=== PATIENT | female | born 1955 | race Caucasian/White ===

== ENCOUNTER 2018-12-23 19:18 | Emergency (ER) | payer MEDICAID ==
[~2018-12-23] VITALS: Ht 167.6 cm; Wt 90.7 kg
[~2018-12-23 19:18] MED LIST: ALPR1TAB2 PO; ATOR20TA50 PO; CYCL10TA3 OR; GABA300C10 PO; HYDR2TAB58 PO; INSLANTI SC; NOVALOG; TRAM50TA2 PO; VALS160T51 PO
[2018-12-23 19:46] VITALS: BP 160/84
[2018-12-23 21:48] LABS: Basophils # (auto) 0 uL; Basophils % (auto) 0.3 % (0.0-2.0); Eosinophils # (auto) 0 uL; Hematocrit 44.3 % (36.0-46.0); Hemoglobin 15.2 g/dL (12.2-16.2); Lymphocytes # (auto) 1.5 uL; Lymphocytes % (auto) 14.2 % (10.0-50.0); Mean Corpuscular Hemoglobin 33.5 pg (28.0-32.0); Mean Corpuscular Hgb Conc. 34.3 g/dL (32.0-36.0); Mean Corpuscular Volume 97.7 fL (80.0-100.0); Monocytes # (auto) 0.7 uL; Monocytes % (auto) 7.1 % (0.0-12.0); Neutrophils # (auto) 8.1 uL; Neutrophils % (auto) 78.4 % (37.0-80.0); Platelet Count (auto) 225 10^3/uL (140-450); Red Blood Cells 4.54 10^6/uL (4.0-5.20); Red Cell Distribution Width 14.5 % (11.8-14.3); White Blood Cell 10.4 10^3/uL (4.4-10.8)
[2018-12-23 21:55] LABS: Albumin 4.1 g/dL (3.4-5.0); Calcium 10.2 mg/dL (8.5-10.1); Potassium 3.3 mmol/L (3.5-5.1)
[2018-12-23 21:58] LABS: Bilirubin, Total 0.8 mg/dL (0.2-1.0); Total Protein 8.6 g/dL (6.4-8.2)
== END 2018-12-23 23:04 | disposition left against medical advice (07) ==
LOC: ER 19:18 → EDBD 19:18 → ER 23:04
DX: R11.2 Nausea with vomiting, unspecified (principal); R19.7 Diarrhea, unspecified; Z53.21 Procedure and treatment not carried out due to patient leaving prior to being seen by health care provider
CPT/HCPCS: 36415; 80053; 85025

== ENCOUNTER 2023-12-04 10:11 | Inpatient (IN) | payer OTHER, MEDICAID ==
[~2023-12-04] VITALS: Ht 152.4 cm; Wt 84.7 kg
[~2023-12-04 10:11] MED LIST changes: +GABA-1250 PO; -GABA300C10 PO; +VALS160T4 PO; -VALS160T51 PO
[2023-12-04] MEDS: ALBUTEROL SULF 2.5 MG/0.5ML(0.5%) NEB SOLN NEB ONE ×2 (11:45→15:30)
[2023-12-04] MEDS: IPRATROPIUM BROM 0.5 MG/2.5ML INH SOL NEB ONE (11:45)
[2023-12-04] MEDS: ASPirin 81 mg TAB PO ONE (12:17)
[2023-12-04 12:27] LABS: Basophils # (auto) 0 10 ^3/uL (0-0.2); Eosinophils # (auto) 0 10 ^3/uL (0-0.8); Eosinophils % (auto) 0.1 % (0.0-7.0); Lymphocytes # (auto) 1.6 10 ^3/uL (0.4-5.4); Neutrophils # (auto) 7.4 10 ^3/uL (1.6-8.6); Neutrophils % (auto) 76.3 % (37.0-80.0); Red Cell Distribution Width 18.9 % (11.8-14.3); White Blood Cell 9.7 10^3/uL (4.4-10.8)
[2023-12-04 12:30] LABS: Basophils % (auto) 0.2 % (0.0-2.0); Hematocrit 36.6 % (36.0-46.0); Hemoglobin 11.2 g/dL (12.2-16.2); Mean Corpuscular Hemoglobin 27.5 pg (28.0-32.0); Mean Corpuscular Hgb Conc. 30.5 g/dL (32.0-36.0); Mean Corpuscular Volume 90.1 fL (80.0-100.0); Monocytes # (auto) 0.6 10 ^3/uL (0-1.3); Monocytes % (auto) 6.4 % (0.0-12.0); Red Blood Cells 4.06 10^6/uL (4.0-5.20)
[2023-12-04 12:41] LABS: Alanine Aminotransferase < 9 U/L (7-40); Albumin 3.7 g/dL (3.2-4.8); Alkaline Phosphatase 122 U/L (46-116); Anion Gap 9 (5-15); Aspartate Aminotransferase 25 U/L (13-40); BUN/Creatinine Ratio 13.4 (10.0-20.0); Bilirubin, Total 0.3 mg/dL (0.2-1.0); Blood Urea Nitrogen 18 mg/dL (9-23); Calcium 9.4 mg/dL (8.5-10.1); Carbon Dioxide 29 mmol/L (20-30); Chloride 97 mmol/L (98-107); Glucose 146 mg/dL (74-106); Potassium 4.7 mmol/L (3.5-5.1); Sodium 135 mmol/L (136-145); Total Protein 7.9 g/dL (5.7-8.2)
[2023-12-04 12:46] LABS: Urine Bacteria MANY /hpf (None Seen); Urine Blood 1+ /uL (Negative); Urine Clarity Turbid (Clear); Urine Color Yellow (Yellow); Urine Protein, UAD 2+ (Negative); Urine Urobilinogen 4 mg/dL (Negative); Urine WBC 298 /hpf (0 - 5); Urine WBC Clumps PRESENT /hpf (None Seen); Urine pH 5.5 (5.0-9.0)
[2023-12-04 12:50] LABS: Base Excess 2.8 mmol/L (-2.0-2.0)
[2023-12-04 12:53] LABS: INR 1.1 (0.9-1.15); Partial Thromboplastin Time 28.8 SEC (24.5-34.5); Prothrombin Time 11.6 sec (9.3-11.8)
[2023-12-04] MEDS ORDERED: VANCOMYCIN PER PHARMACY 0 MG IV SCH (14:45)
[2023-12-04] MEDS ORDERED: DEXTROSE (50%) 50ML SYRG IV PRN (15:00)
[2023-12-04] MEDS ORDERED: ALBUTEROL SULF 2.5 MG/0.5ML(0.5%) NEB SOLN NEB PRN (15:00)
[2023-12-04] MEDS ORDERED: traMADol HCL 50 MG TAB PO PRN (15:00)
[2023-12-04 15:01] VITALS: BP 100/48; PULSE 90; RESP 22; O2SAT 94
[2023-12-04] MEDS ORDERED: cefTRIAXone 1GM/50ML D5W 50 ML IV SCH (15:16)
[2023-12-04 15:24] LABS: LDL Cholesterol 54 mg/dL (< 100); Triglycerides 127 mg/dL (< 150)
[2023-12-04 15:26] LABS: Cholesterol 103 mg/dL (< 200); HDL Cholesterol 20 mg/dL (40-59)
[2023-12-04 15:30] VITALS: PULSE 86; RESP 20; O2SAT 85
[2023-12-04 15:36] VITALS: PULSE 92; RESP 20; O2SAT 100
[2023-12-04] MEDS ORDERED: HYDROmorphone HCL 2 MG TAB PO SCH (16:00)
[2023-12-04 16:50] VITALS: PULSE 88; RESP 20; O2SAT 90
[2023-12-04] MEDS ORDERED: ACETAMINOPHEN 325 MG TAB PO PRN (17:00)
[2023-12-04] MEDS: InsuLIN REG 1unit/0.01ml Soln (100units/ml) SC SCH (17:25)
[2023-12-04] MEDS: PANTOPRAZOLE 40 MG/10 ML VIAL INJ IV ONE (17:26)
[2023-12-04] MEDS: ACCU-CHEK COMFORT CURVE STRIP VI SCH (17:26)
[2023-12-04] MEDS: DexAMETHasone SOD PHOS 10MG/1ML VIAL INJ IV ONE (17:26)
[2023-12-04] MEDS: cefTRIAXone 1GM/50ML D5W 50 ML IV ONE (17:27)
[2023-12-04] MEDS: VANCOMYCIN 1GM/200ML 200 ML IV ONE (17:57)
[2023-12-04] MEDS: IPRATROPIUM BROM 0.5 MG/2.5ML INH SOL NEB SCH (18:00)
[2023-12-04] MEDS: ALBUTEROL SULF 2.5 MG/0.5ML(0.5%) NEB SOLN NEB SCH (18:00)
[2023-12-04 18:01] LABS: COVID19 ANTIGEN SOFIA FIA NEGATIVE (NEGATIVE); Rapid Influenza A Negative (Negative); Rapid Influenza B Negative (Negative)
[2023-12-04] MEDS: AZITHROMYCIN 500MG/ 250ML 250 ML IV SCH (19:36)
[2023-12-04 20:48] LABS: Magnesium 1.7 mg/dL (1.6-2.6)
[2023-12-04] MEDS ORDERED: ALPRAZolam 0.5 MG TAB PO SCH (22:00)
[2023-12-04 22:18] VITALS: PULSE 93; RESP 20; O2SAT 95
[2023-12-04] MEDS ORDERED: ALL100T PO (22:20)
[2023-12-04 22:26] VITALS: PULSE 97; RESP 18; O2SAT 99
[2023-12-04] MEDS: GABAPENTIN 300 MG CAP PO SCH (22:32)
[2023-12-04] MEDS: HYDROmorphone HCL 2 MG TAB PO SCH (22:32)
[2023-12-05] VITALS (16 sets, daily range): BP systolic 105–129; BP diastolic 43–61; PULSE 76–99; RESP 16–19; TEMP 97.8–98.4; O2SAT 93–100
[2023-12-05 06:42] LABS: Basophils # (auto) 0 10 ^3/uL (0-0.2); Basophils % (auto) 0.2 % (0.0-2.0); Eosinophils # (auto) 0 10 ^3/uL (0-0.8); Hematocrit 34.2 % (36.0-46.0); Hemoglobin 10.7 g/dL (12.2-16.2); Lymphocytes # (auto) 0.9 10 ^3/uL (0.4-5.4); Lymphocytes % (auto) 9.1 % (10.0-50.0); Mean Corpuscular Hemoglobin 27.9 pg (28.0-32.0); Mean Corpuscular Hgb Conc. 31.3 g/dL (32.0-36.0); Mean Corpuscular Volume 89.1 fL (80.0-100.0); Monocytes # (auto) 0.4 10 ^3/uL (0-1.3); Monocytes % (auto) 3.7 % (0.0-12.0); Neutrophils # (auto) 8.9 10 ^3/uL (1.6-8.6); Red Blood Cells 3.83 10^6/uL (4.0-5.20); Red Cell Distribution Width 19.1 % (11.8-14.3); White Blood Cell 10.2 10^3/uL (4.4-10.8)
[2023-12-05] MEDS: ASPirin 81 mg TAB PO ONE (09:40)
[2023-12-05] MEDS: cefTRIAXone 1GM/50ML D5W 50 ML IV SCH (09:40)
[2023-12-05] MEDS: ATORVASTATIN 20 MG TAB PO SCH (09:41)
[2023-12-05] MEDS: traMADol HCL 50 MG TAB PO PRN (09:47)
[2023-12-05] MEDS: ENOXAPARIN SOD 40 MG/0.4 ML SYRINGE SC SCH (09:59)
[2023-12-05] MEDS ORDERED: CYCLOBENZAPRINE HCL 10 MG TAB PO SCH (10:00)
[2023-12-05] MEDS ORDERED: GABA-1250 PO (10:41)
[2023-12-05] MEDS ORDERED: FLUO-125 PO (10:41)
[2023-12-05] MEDS ORDERED: TRAM50TA2 PO (10:41)
[2023-12-05] MEDS ORDERED: ATOR40TA52 PO (10:41)
[2023-12-05] MEDS ORDERED: HYDR2TAB58 PO (10:41)
[2023-12-05] MEDS ORDERED: LOSA-535 PO (10:41)
[2023-12-05] MEDS ORDERED: DOCU-94 PO (10:41)
[2023-12-05] MEDS: methylPREDNISolone SOD SUCC 40 MG/ML VL IV ONE (10:45)
[2023-12-05] MEDS: methylPREDNISolone SOD SUCC 40 MG/ML VL IV SCH (13:15)
[2023-12-05 15:02] LABS: Alanine Aminotransferase < 9 U/L (7-40); Albumin 3.3 g/dL (3.2-4.8); Alkaline Phosphatase 111 U/L (46-116); Anion Gap 9 (5-15); Aspartate Aminotransferase 21 U/L (13-40); BUN/Creatinine Ratio 19.6 (10.0-20.0); Bilirubin, Total < 0.2 mg/dL (0.2-1.0); Blood Urea Nitrogen 27 mg/dL (9-23); Calcium 9.3 mg/dL (8.5-10.1); Carbon Dioxide 27 mmol/L (20-30); Chloride 96 mmol/L (98-107); Glucose 209 mg/dL (74-106); Potassium 3.8 mmol/L (3.5-5.1); Sodium 132 mmol/L (136-145)
[2023-12-05] MEDS ORDERED: VANCOMYCIN 1GM/200ML 200 ML IV ONE (16:00)
[2023-12-05] MEDS: INSULIN LANTUS (GLARGINE) 1 /0.01ml (100units/ml) SC SCH (21:46)
[2023-12-06] VITALS (23 sets, daily range): BP systolic 96–163; BP diastolic 46–71; PULSE 62–100; RESP 14–19; TEMP 97.7–98.8; O2SAT 92–100
[2023-12-06] MEDS: ASPirin 81 mg TAB PO SCH (10:28)
[2023-12-06] MEDS ORDERED: ERTAPENEM SOD INJ 0.5 GM in SODIUM CHL 0.9% 50 ML IV ONE (14:30)
[2023-12-06] MEDS: ERTAPENEM SOD INJ 0.5 GM in SODIUM CHL 0.9% 50 ML IV SCH (17:29)
[2023-12-06] MEDS: methylPREDNISolone SOD SUCC 40 MG/ML VL IV SCH (21:51)
[2023-12-06] MEDS: SODIUM CHLORIDE 0.9% 1,000 ML IV SCH (22:05)
[2023-12-07] VITALS (15 sets, daily range): BP systolic 97–169; BP diastolic 56–73; PULSE 86–99; RESP 17–20; TEMP 37; O2SAT 92–100
[2023-12-07 06:40] LABS: Basophils # (auto) 0 10 ^3/uL (0-0.2); Eosinophils # (auto) 0 10 ^3/uL (0-0.8); Lymphocytes # (auto) 0.6 10 ^3/uL (0.4-5.4)
[2023-12-07 06:42] LABS: Chloride 100 mmol/L (98-107)
[2023-12-07 06:43] LABS: Anion Gap 7 (5-15); Calcium 8.9 mg/dL (8.5-10.1); Carbon Dioxide 28 mmol/L (20-30); Potassium 5.3 mmol/L (3.5-5.1); Sodium 135 mmol/L (136-145)
[2023-12-07 06:44] LABS: Eosinophils % (auto) 0.1 % (0.0-7.0); Lymphocytes % (auto) 6.7 % (10.0-50.0); Mean Corpuscular Hemoglobin 27.6 pg (28.0-32.0); Mean Corpuscular Hgb Conc. 30.5 g/dL (32.0-36.0); Mean Corpuscular Volume 90.3 fL (80.0-100.0); Monocytes # (auto) 0.3 10 ^3/uL (0-1.3); Neutrophils # (auto) 7.7 10 ^3/uL (1.6-8.6); Neutrophils % (auto) 90.2 % (37.0-80.0); Nucleated Red Blood Cells % 0.1 %; Red Blood Cells 3.54 10^6/uL (4.0-5.20); Red Cell Distribution Width 19.2 % (11.8-14.3); White Blood Cell 8.6 10^3/uL (4.4-10.8)
[2023-12-07 06:48] LABS: Glucose 263 mg/dL (74-106)
[2023-12-07 06:49] LABS: BUN/Creatinine Ratio 34.8 (10.0-20.0); Blood Urea Nitrogen 32 mg/dL (9-23)
[2023-12-07 07:04] LABS: Hemoglobin 9.8 g/dL (12.2-16.2)
[2023-12-07] MEDS ORDERED: METH4PAK PO (10:30)
[2023-12-07] MEDS: INSULIN LANTUS (GLARGINE) 1 /0.01ml (100units/ml) SC SCH (12:11)
== END 2023-12-07 18:35 | disposition home health service (06) | DRG 189 ==
LOC: ER 10:11 → OVERFLOW 16:49 → CENTRAL 21:32
PROVIDERS: ADMIT Nurse Practitioner Family; ATTEND Internal Medicine Geriatric Medicine
PROC: 05HC33Z Insertion of Infusion Device into Left Basilic Vein, Percutaneous Approach (ICD-10-PCS; principal; 2023-12-07)
PROC: B54NZZA Ultrasonography of Left Upper Extremity Veins, Guidance (ICD-10-PCS; 2023-12-07)
DX: J96.21 Acute and chronic respiratory failure with hypoxia (principal); I13.0 Hypertensive heart and chronic kidney disease with heart failure and stage 1 through stage 4 chronic kidney disease, or unspecified chronic kidney disease; J44.1 Chronic obstructive pulmonary disease with (acute) exacerbation; N30.00 Acute cystitis without hematuria; I50.40 Unspecified combined systolic (congestive) and diastolic (congestive) heart failure; J90 Pleural effusion, not elsewhere classified; Z16.12 Extended spectrum beta lactamase (ESBL) resistance; N17.9 Acute kidney failure, unspecified; Z20.822 Contact with and (suspected) exposure to COVID-19; E11.22 Type 2 diabetes mellitus with diabetic chronic kidney disease; R74.8 Abnormal levels of other serum enzymes; E66.01 Morbid (severe) obesity due to excess calories; G89.4 Chronic pain syndrome; E11.40 Type 2 diabetes mellitus with diabetic neuropathy, unspecified; F41.9 Anxiety disorder, unspecified; M10.9 Gout, unspecified; R91.8 Other nonspecific abnormal finding of lung field; R59.1 Generalized enlarged lymph nodes; N18.30 Chronic kidney disease, stage 3 unspecified; B96.20 Unspecified Escherichia coli [E. coli] as the cause of diseases classified elsewhere; B96.89 Other specified bacterial agents as the cause of diseases classified elsewhere; E78.00 Pure hypercholesterolemia, unspecified; Z86.711 Personal history of pulmonary embolism; Z90.5 Acquired absence of kidney; Z87.820 Personal history of traumatic brain injury; Z88.5 Allergy status to narcotic agent; Z88.2 Allergy status to sulfonamides; Z83.3 Family history of diabetes mellitus; Z90.49 Acquired absence of other specified parts of digestive tract; Z79.4 Long term (current) use of insulin; Z99.81 Dependence on supplemental oxygen; Z92.3 Personal history of irradiation; Z87.891 Personal history of nicotine dependence; Z78.9 Other specified health status; Z68.36 Body mass index [BMI] 36.0-36.9, adult; F32.A Depression, unspecified; F17.200 Nicotine dependence, unspecified, uncomplicated
CPT/HCPCS: 36415; 36600; 71045; 71250; 76700; 80048; 80053; 80061; 81001; 82805; 82962; 83036; 83735; 83880; 84439; 84443; 84484; 85025; 85379; 85610; 85730; 87081; 87086; 87088; 87186; 87426; 87804; 93005; 93306; 94640; 97110; 97116; 97163; 97530; C9113; G0378; J1100; J1335; J1815

== ENCOUNTER 2024-04-11 13:58 | Inpatient (IN) | payer OTHER, MEDICAID ==
[~2024-04-11] VITALS: Ht 157.5 cm; Wt 72.6 kg
[~2024-04-11 13:58] MED LIST changes: +ALL100T PO; -ALPR1TAB2 PO; -CYCL10TA3 OR; +DOCU-94 PO; +FLUO-125 PO; +METH4PAK PO; -NOVALOG
[2024-04-11 15:20] LABS: Basophils # (auto) 0.1 10 ^3/uL (0-0.2); Eosinophils # (auto) 0 10 ^3/uL (0-0.8); Lymphocytes # (auto) 1.4 10 ^3/uL (0.4-5.4); Monocytes # (auto) 0.7 10 ^3/uL (0-1.3)
[2024-04-11 15:22] LABS: Eosinophils % (auto) 0.1 % (0.0-7.0); Hematocrit 23.8 % (36.0-46.0); Mean Corpuscular Hemoglobin 23.9 pg (28.0-32.0); Mean Corpuscular Hgb Conc. 29.1 g/dL (32.0-36.0); Mean Corpuscular Volume 82.1 fL (80.0-100.0); Monocytes % (auto) 5.6 % (0.0-12.0); Neutrophils # (auto) 10.3 10 ^3/uL (1.6-8.6); Neutrophils % (auto) 82.3 % (37.0-80.0); Platelet Count (auto) 605 10^3/uL (140-450); White Blood Cell 12.5 10^3/uL (4.4-10.8)
[2024-04-11 15:27] LABS: Red Cell Distribution Width 20.4 % (11.8-14.3)
[2024-04-11 15:31] LABS: Hemoglobin 6.9 g/dL (12.2-16.2)
[2024-04-11 15:41] LABS: Albumin 3.1 g/dL (3.2-4.8); Alkaline Phosphatase 167 U/L (46-116); Anion Gap 8 (5-15); Aspartate Aminotransferase 16 U/L (13-40); BUN/Creatinine Ratio 11.5 (10.0-20.0); Blood Urea Nitrogen 11 mg/dL (9-23); Calcium 8.7 mg/dL (8.7-10.4); Carbon Dioxide 29 mmol/L (20-30); Chloride 99 mmol/L (98-107); Creatine Kinase IFCC 17 U/L (34-145); Glucose 146 mg/dL (74-106); Magnesium 1.5 mg/dL (1.6-2.6); Sodium 136 mmol/L (136-145)
[2024-04-11 15:42] LABS: Alanine Aminotransferase < 9 U/L (7-40); Bilirubin, Total 0.4 mg/dL (0.2-1.0); Total Protein 7.1 g/dL (5.7-8.2)
[2024-04-11 17:09] VITALS: PULSE 108; RESP 20; O2SAT 93
[2024-04-11] MEDS: PIPERACILLIN-TAZOB 3.375GM 100 ML IV ONE (17:29)
[2024-04-11] MEDS: SODIUM CHLORIDE 0.9% 1,000 ML IV ONE (17:30)
[2024-04-11] MEDS: FUROSEMIDE 40 MG/4 ML VIAL IV ONE (17:30)
[2024-04-11] MEDS ORDERED: ONDANSETRON HCL 4 MG/2 ML VIAL IV PRN (18:30)
[2024-04-11] MEDS ORDERED: MORPHINE SULFATE INJ 2 MG/ml SYRG IV PRN (18:30)
[2024-04-11] MEDS ORDERED: DEXTROSE (50%) 50ML SYRG IV PRN (18:30)
[2024-04-11 19:21] VITALS: PULSE 101; RESP 28; O2SAT 96
[2024-04-11] MEDS: SODIUM CHLORIDE 0.9% 500 ML IV ONE (20:00)
[2024-04-11] MEDS: PANTOPRAZOLE 40 MG/10 ML VIAL INJ IV SCH (21:10)
[2024-04-11 21:19] LABS: Urine Bacteria FEW /hpf (None Seen); Urine Blood Negative /uL (Negative); Urine Clarity Clear (Clear); Urine Color Colorless (Yellow); Urine Protein, UAD Negative (Negative); Urine Specific Gravity 1.007 (1.001-1.035); Urine Urobilinogen Normal (Negative); Urine WBC 1 /hpf (0 - 5)
[2024-04-11] MEDS: D5W/LACTATED RINGERS 1,000 ML IV ONE (21:30)
[2024-04-11] MEDS: ACETAMINOPHEN 500 MG TAB PO ONE (21:41)
[2024-04-11] MEDS: SODIUM CHLOR 0.9% PF (SALINE LOCK) 10ML VIAL/SYR IV SCH (22:24)
[2024-04-11 22:37] VITALS: PULSE 101; RESP 28; O2SAT 96
[2024-04-11 23:38] VITALS: BP 122/43; PULSE 94; RESP 20; RESP 22; TEMP 98.9; O2SAT 96
[2024-04-12] VITALS (14 sets, daily range): BP systolic 104–124; BP diastolic 45–63; PULSE 83–104; RESP 15–20; TEMP 97.6–99; O2SAT 94–99
[2024-04-12] MEDS: ACCU-CHEK COMFORT CURVE STRIP VI SCH (00:38)
[2024-04-12] MEDS: InsuLIN REG 1unit/0.01ml Soln (100units/ml) SC SCH (00:47)
[2024-04-12] MEDS: ATORVASTATIN 20 MG TAB PO SCH (09:03)
[2024-04-12] MEDS: DOCUSATE SOD 100 MG CAP PO SCH (09:03)
[2024-04-12] MEDS: FLUoxetine HCL 20 MG CAP PO SCH (09:03)
[2024-04-12] MEDS: ALLOPURINOL 100 MG TAB PO SCH (09:04)
[2024-04-12 09:55] LABS: Alanine Aminotransferase 10 U/L (7-40); Alkaline Phosphatase 148 U/L (46-116); Anion Gap 7 (5-15); Calcium 8.3 mg/dL (8.7-10.4); Carbon Dioxide 28 mmol/L (20-30); Chloride 103 mmol/L (98-107); Glucose 149 mg/dL (74-106); Magnesium 1.4 mg/dL (1.6-2.6); Potassium 3.8 mmol/L (3.5-5.1); Sodium 138 mmol/L (136-145)
[2024-04-12 09:56] LABS: Albumin 2.8 g/dL (3.2-4.8); Aspartate Aminotransferase 9 U/L (13-40); BUN/Creatinine Ratio 13.3 (10.0-20.0); Blood Urea Nitrogen 13 mg/dL (9-23)
[2024-04-12 09:57] LABS: Bilirubin, Total 0.4 mg/dL (0.2-1.0); Total Protein 6.3 g/dL (5.7-8.2)
[2024-04-12 10:41] LABS: Basophils # (auto) 0 10 ^3/uL (0-0.2); Eosinophils # (auto) 0 10 ^3/uL (0-0.8); Eosinophils % (auto) 0.2 % (0.0-7.0); Monocytes # (auto) 0.7 10 ^3/uL (0-1.3)
[2024-04-12 10:43] LABS: Basophils % (auto) 0.4 % (0.0-2.0); Hematocrit 25.7 % (36.0-46.0); Hemoglobin 7.6 g/dL (12.2-16.2); Lymphocytes # (auto) 1.2 10 ^3/uL (0.4-5.4); Lymphocytes % (auto) 10.6 % (10.0-50.0); Mean Corpuscular Hemoglobin 24.8 pg (28.0-32.0); Mean Corpuscular Hgb Conc. 29.5 g/dL (32.0-36.0); Mean Corpuscular Volume 84.1 fL (80.0-100.0); Monocytes % (auto) 6.5 % (0.0-12.0); Neutrophils # (auto) 9.2 10 ^3/uL (1.6-8.6); Neutrophils % (auto) 82.3 % (37.0-80.0); Platelet Count (auto) 435 10^3/uL (140-450); Red Blood Cells 3.06 10^6/uL (4.0-5.20); White Blood Cell 11.2 10^3/uL (4.4-10.8)
[2024-04-12 10:51] LABS: Red Cell Distribution Width 20.6 % (11.8-14.3)
[2024-04-12] MEDS ORDERED: VANCOMYCIN PER PHARMACY 0 MG IV SCH (11:45)
[2024-04-12 12:36] LABS: INR 1.25 (0.9-1.15)
[2024-04-12] MEDS: AZITHROMYCIN 500MG/ 250ML 250 ML IV ONE (13:27)
[2024-04-12] MEDS: CEFEPIME 2GM/50ML NS 50 ML IV SCH (14:00)
[2024-04-12] MEDS ORDERED: CEFEPIME 2GM/50ML NS 50 ML IV SCH (14:00)
[2024-04-12 14:59] LABS: COVID19 ANTIGEN SOFIA FIA NEGATIVE (NEGATIVE); Rapid Influenza A Negative (Negative); Rapid Influenza B Negative (Negative)
[2024-04-12 16:20] LABS: Band Neutrophils % (manual) 0; Basophils % (manual) 0 (0.0-2.0); Blast Cells 0; Eosinophils % (manual) 0 (0-7); Metamyelocytes % 0; Myelocytes % 0; Promyelocytes % 0; Reactive Lymphocytes 0
[2024-04-12] MEDS: VANCOMYCIN 1.75GM/350ML 350 ML IV ONE (16:31)
[2024-04-12 19:46] LABS: Nucleated Red Blood Cells % 0.1 %; Platelet Count (auto) 437 10^3/uL (140-450)
[2024-04-12 20:01] LABS: % Iron Saturation 7.7 % (15-50)
[2024-04-12 20:39] LABS: Folate (Folic Acid) 5.51 ng/mL (>5.38)
[2024-04-12 20:44] LABS: Anisocytosis Slight; Hypochromia Slight; Lymphocytes % (manual) 10 (10.0-50.0); Monocytes % (manual) 5 (0-12); Platelet Estimate Adequate
[2024-04-12] MEDS ORDERED: IPRATROPIUM BROM 0.5 MG/2.5ML INH SOL NEB SCH (22:00)
[2024-04-12] MEDS: PANTOPRAZOLE 40 MG/10 ML VIAL INJ IV SCH (22:06)
[2024-04-12] MEDS: HYDROmorphone HCL 2 MG TAB PO ONE (22:06)
[2024-04-12] MEDS: NYSTATIN TOPICAL POWDER 15GM TOP SCH (22:06)
[2024-04-12 22:46] LABS: Body Fluid Polymorphonuclear 30 % (0-25); Body Fluid Red Blood Cells 55 CUMM (0-2000); Body Fluid White Blood Cells 90 CUMM (0-200)
[2024-04-13] VITALS (20 sets, daily range): BP systolic 105–127; BP diastolic 39–64; PULSE 80–110; RESP 16–20; TEMP 97.9–99.4; O2SAT 92–100
[2024-04-13] MEDS: VANCOMYCIN 750mg/150ml 150 ML IV SCH (00:10)
[2024-04-13] MEDS: IPRATROPIUM BROM 0.5 MG/2.5ML INH SOL NEB SCH (00:30)
[2024-04-13] MEDS: LEVALBUTEROL HCL 1.25 MG/3 ML NEB NEB SCH (00:30)
[2024-04-13 06:32] LABS: Basophils # (auto) 0 10 ^3/uL (0-0.2); Eosinophils # (auto) 0 10 ^3/uL (0-0.8); Eosinophils % (auto) 0.2 % (0.0-7.0); Lymphocytes # (auto) 1.2 10 ^3/uL (0.4-5.4); Red Blood Cells 2.68 10^6/uL (4.0-5.20)
[2024-04-13 06:37] LABS: INR 1.28 (0.9-1.15); Partial Thromboplastin Time 31.4 SEC (24.5-34.5); Prothrombin Time 13.3 sec (9.3-11.8)
[2024-04-13 06:38] LABS: Albumin 2.7 g/dL (3.2-4.8); Alkaline Phosphatase 140 U/L (46-116); Anion Gap 9 (5-15); Aspartate Aminotransferase 9 U/L (13-40); Bilirubin, Total 0.4 mg/dL (0.2-1.0); Blood Urea Nitrogen 17 mg/dL (9-23); Calcium 8.4 mg/dL (8.7-10.4); Carbon Dioxide 26 mmol/L (20-30); Chloride 103 mmol/L (98-107); Magnesium 1.5 mg/dL (1.6-2.6); Potassium 3.5 mmol/L (3.5-5.1); Sodium 138 mmol/L (136-145); Total Protein 6.2 g/dL (5.7-8.2)
[2024-04-13 06:41] LABS: Alanine Aminotransferase < 9 U/L (7-40)
[2024-04-13 06:43] LABS: Basophils % (auto) 0.2 % (0.0-2.0); Glucose 136 mg/dL (74-106); Hematocrit 22.5 % (36.0-46.0); Lymphocytes % (auto) 8.7 % (10.0-50.0); Mean Corpuscular Hgb Conc. 29.8 g/dL (32.0-36.0); Monocytes # (auto) 0.9 10 ^3/uL (0-1.3); Monocytes % (auto) 6.5 % (0.0-12.0); Neutrophils # (auto) 11.3 10 ^3/uL (1.6-8.6); Neutrophils % (auto) 84.4 % (37.0-80.0); Platelet Count (auto) 460 10^3/uL (140-450); White Blood Cell 13.4 10^3/uL (4.4-10.8)
[2024-04-13 06:47] LABS: Hemoglobin 6.7 g/dL (12.2-16.2)
[2024-04-13] MEDS: MAGNESIUM SULFATE 1GM/100ML 100 ML IV SCH (08:28)
[2024-04-13] MEDS: LACTATED RINGER'S 1,000 ML IV SCH (10:28)
[2024-04-13] MEDS: AZITHROMYCIN 500MG/ 250ML 250 ML IV SCH (10:31)
[2024-04-13] MEDS ORDERED: GASTROGRAFIN 120 ML SOL ONE (12:24)
[2024-04-13 22:20] LABS: Hemoglobin 8.4 g/dL (12.2-16.2)
[2024-04-13 22:21] LABS: Hematocrit 28.1 % (36.0-46.0)
[2024-04-14] VITALS (15 sets, daily range): BP systolic 119–142; BP diastolic 48–61; PULSE 71–112; RESP 16–22; TEMP 98–98.5; O2SAT 91–98
[2024-04-14 07:14] LABS: Hematocrit 25.8 % (36.0-46.0); Hemoglobin 7.8 g/dL (12.2-16.2); Mean Corpuscular Hemoglobin 25.5 pg (28.0-32.0); Mean Corpuscular Hgb Conc. 30.3 g/dL (32.0-36.0); Mean Corpuscular Volume 84.1 fL (80.0-100.0); Platelet Count (auto) 430 10^3/uL (140-450); Red Blood Cells 3.07 10^6/uL (4.0-5.20); Red Cell Distribution Width 19.4 % (11.8-14.3); White Blood Cell 17.9 10^3/uL (4.4-10.8)
[2024-04-14 07:20] LABS: Band Neutrophils % (manual) 0; Basophils % (manual) 0 (0.0-2.0); Blast Cells 0; Eosinophils % (manual) 0 (0-7); Metamyelocytes % 0; Myelocytes % 0; Promyelocytes % 0; Reactive Lymphocytes 0
[2024-04-14 07:30] LABS: Albumin 2.8 g/dL (3.2-4.8); Alkaline Phosphatase 140 U/L (46-116); Anion Gap 11 (5-15); Aspartate Aminotransferase 14 U/L (13-40); BUN/Creatinine Ratio 18.8 (10.0-20.0); Bilirubin, Total 0.5 mg/dL (0.2-1.0); Blood Urea Nitrogen 19 mg/dL (9-23); Calcium 8.8 mg/dL (8.7-10.4); Carbon Dioxide 25 mmol/L (20-30); Chloride 105 mmol/L (98-107); Glucose 154 mg/dL (74-106); Potassium 3.3 mmol/L (3.5-5.1); Sodium 141 mmol/L (136-145); Total Protein 6.3 g/dL (5.7-8.2)
[2024-04-14 07:39] LABS: Alanine Aminotransferase < 9 U/L (7-40)
[2024-04-14 08:13] LABS: Magnesium 2.1 mg/dL (1.6-2.6)
[2024-04-14 10:07] LABS: CA 27.29 18.3 U/mL (0.0-38.6)
[2024-04-14 11:44] LABS: Lymphocytes % (manual) 7 (10.0-50.0); Monocytes % (manual) 2 (0-12)
[2024-04-14 11:45] LABS: Platelet Estimate Increased
[2024-04-14 12:06] LABS: Protein, Body Fluid 2.8 g/dL (.)
[2024-04-14] MEDS: VANCOMYCIN 500 MG in D5W 5% 100 ML IV SCH (18:07)
[2024-04-14 18:44] LABS: Basophils # (auto) 0 10 ^3/uL (0-0.2); Eosinophils # (auto) 0 10 ^3/uL (0-0.8)
[2024-04-14 18:47] LABS: Basophils % (auto) 0.3 % (0.0-2.0); Eosinophils % (auto) 0.1 % (0.0-7.0); Hematocrit 29.3 % (36.0-46.0); Hemoglobin 8.8 g/dL (12.2-16.2); Lymphocytes % (auto) 5.7 % (10.0-50.0); Mean Corpuscular Hemoglobin 25.6 pg (28.0-32.0); Mean Corpuscular Hgb Conc. 30.1 g/dL (32.0-36.0); Mean Corpuscular Volume 84.8 fL (80.0-100.0); Monocytes # (auto) 0.8 10 ^3/uL (0-1.3); Monocytes % (auto) 4.8 % (0.0-12.0); Neutrophils # (auto) 15.1 10 ^3/uL (1.6-8.6); Neutrophils % (auto) 89.1 % (37.0-80.0); Nucleated Red Blood Cells % 0.1 %; Platelet Count (auto) 498 10^3/uL (140-450); Red Blood Cells 3.46 10^6/uL (4.0-5.20); Red Cell Distribution Width 19.4 % (11.8-14.3)
[2024-04-14] MEDS: POTASSIUM CHL 20MEQ/100ML 100 ML IV SCH (21:03)
[2024-04-15] VITALS (19 sets, daily range): BP systolic 121–151; BP diastolic 53–98; PULSE 75–106; RESP 16–22; TEMP 98.2–99.1; O2SAT 19–100
[2024-04-15 06:40] LABS: Basophils # (auto) 0 10 ^3/uL (0-0.2); Basophils % (auto) 0.2 % (0.0-2.0); Eosinophils # (auto) 0 10 ^3/uL (0-0.8); Eosinophils % (auto) 0.2 % (0.0-7.0); Hematocrit 26.3 % (36.0-46.0); Lymphocytes # (auto) 0.9 10 ^3/uL (0.4-5.4); Lymphocytes % (auto) 5.7 % (10.0-50.0); Mean Corpuscular Hemoglobin 24.9 pg (28.0-32.0); Mean Corpuscular Hgb Conc. 30.3 g/dL (32.0-36.0); Monocytes # (auto) 0.8 10 ^3/uL (0-1.3); Monocytes % (auto) 5.1 % (0.0-12.0); Neutrophils # (auto) 13.5 10 ^3/uL (1.6-8.6); Neutrophils % (auto) 88.8 % (37.0-80.0); Platelet Count (auto) 369 10^3/uL (140-450); Red Blood Cells 3.21 10^6/uL (4.0-5.20); Red Cell Distribution Width 19.7 % (11.8-14.3); White Blood Cell 15.2 10^3/uL (4.4-10.8)
[2024-04-15 06:45] LABS: INR 1.21 (0.9-1.15); Prothrombin Time 12.6 sec (9.3-11.8)
[2024-04-15 06:55] LABS: Albumin 2.8 g/dL (3.2-4.8); Alkaline Phosphatase 140 U/L (46-116); Anion Gap 12 (5-15); Aspartate Aminotransferase 16 U/L (13-40); BUN/Creatinine Ratio 26.4 (10.0-20.0); Blood Urea Nitrogen 23 mg/dL (9-23); Carbon Dioxide 21 mmol/L (20-30); Chloride 106 mmol/L (98-107); Glucose 157 mg/dL (74-106); Magnesium 1.9 mg/dL (1.6-2.6); Potassium 4.5 mmol/L (3.5-5.1); Sodium 139 mmol/L (136-145)
[2024-04-15 06:56] LABS: Bilirubin, Total 0.5 mg/dL (0.2-1.0); Total Protein 6.3 g/dL (5.7-8.2)
[2024-04-15 06:57] LABS: Alanine Aminotransferase < 9 U/L (7-40)
[2024-04-15] MEDS ORDERED: ATOR-507 PO (09:46)
[2024-04-15] MEDS ORDERED: TRAM50TA2 PO (09:46)
[2024-04-15] MEDS ORDERED: CYCL-839 PO (09:46)
[2024-04-15] MEDS ORDERED: LISI10TA34 PO (09:46)
[2024-04-15] MEDS: GABAPENTIN 300 MG CAP PO ONE (15:06)
[2024-04-15] MEDS: GABAPENTIN 300 MG CAP PO SCH (21:40)
[2024-04-16] VITALS (18 sets, daily range): BP systolic 106–135; BP diastolic 39–59; PULSE 75–106; RESP 16–24; TEMP 98–98.5; O2SAT 87–100
[2024-04-16 14:55] LABS: Alkaline Phosphatase 148 U/L (46-116); Anion Gap 11 (5-15); Aspartate Aminotransferase 32 U/L (13-40); BUN/Creatinine Ratio 25.3 (10.0-20.0); Bilirubin, Total 0.4 mg/dL (0.2-1.0); Blood Urea Nitrogen 19 mg/dL (9-23); Calcium 9.1 mg/dL (8.7-10.4); Carbon Dioxide 22 mmol/L (20-30); Chloride 104 mmol/L (98-107); Glucose 150 mg/dL (74-106); Magnesium 1.9 mg/dL (1.6-2.6); Potassium 3.5 mmol/L (3.5-5.1); Sodium 137 mmol/L (136-145)
[2024-04-16 14:56] LABS: Total Protein 6.7 g/dL (5.7-8.2)
[2024-04-16 14:57] LABS: Alanine Aminotransferase < 9 U/L (7-40); Basophils # (auto) 0 10 ^3/uL (0-0.2); Basophils % (auto) 0.2 % (0.0-2.0); Eosinophils # (auto) 0.1 10 ^3/uL (0-0.8); Eosinophils % (auto) 0.4 % (0.0-7.0); Hematocrit 29.2 % (36.0-46.0); Hemoglobin 8.5 g/dL (12.2-16.2); Mean Corpuscular Hemoglobin 25.2 pg (28.0-32.0); Monocytes # (auto) 0.5 10 ^3/uL (0-1.3); Monocytes % (auto) 4.2 % (0.0-12.0); Neutrophils # (auto) 11.1 10 ^3/uL (1.6-8.6); Neutrophils % (auto) 87.2 % (37.0-80.0); Nucleated Red Blood Cells % 0.1 %; Platelet Count (auto) 411 10^3/uL (140-450); Red Blood Cells 3.35 10^6/uL (4.0-5.20); White Blood Cell 12.8 10^3/uL (4.4-10.8)
[2024-04-16] MEDS: VANCOMYCIN 500 MG in D5W 5% 100 ML IV SCH (21:54)
[2024-04-17] VITALS (14 sets, daily range): BP systolic 95–147; BP diastolic 43–82; PULSE 87–106; RESP 16–20; TEMP 97.8–98.5; O2SAT 87–98
[2024-04-17 09:04] LABS: Basophils # (auto) 0 10 ^3/uL (0-0.2); Eosinophils # (auto) 0.1 10 ^3/uL (0-0.8); Eosinophils % (auto) 0.5 % (0.0-7.0); Monocytes # (auto) 0.5 10 ^3/uL (0-1.3); Monocytes % (auto) 4.2 % (0.0-12.0); Nucleated Red Blood Cells % 0.1 %
[2024-04-17 09:07] LABS: Basophils % (auto) 0.2 % (0.0-2.0); Hemoglobin 7.9 g/dL (12.2-16.2); Lymphocytes % (auto) 7.8 % (10.0-50.0); Mean Corpuscular Hemoglobin 25.3 pg (28.0-32.0); Mean Corpuscular Hgb Conc. 28.1 g/dL (32.0-36.0); Mean Corpuscular Volume 89.7 fL (80.0-100.0); Neutrophils # (auto) 11.2 10 ^3/uL (1.6-8.6); Neutrophils % (auto) 87.3 % (37.0-80.0); Platelet Count (auto) 345 10^3/uL (140-450); Red Blood Cells 3.12 10^6/uL (4.0-5.20); Red Cell Distribution Width 20.2 % (11.8-14.3); White Blood Cell 12.8 10^3/uL (4.4-10.8)
[2024-04-17 09:11] LABS: INR 1.24 (0.9-1.15); Partial Thromboplastin Time 29.7 SEC (24.5-34.5); Prothrombin Time 12.9 sec (9.3-11.8)
[2024-04-17 09:16] LABS: Albumin 2.8 g/dL (3.2-4.8); Alkaline Phosphatase 144 U/L (46-116); Anion Gap 7 (5-15); Aspartate Aminotransferase 30 U/L (13-40); BUN/Creatinine Ratio 20.3 (10.0-20.0); Blood Urea Nitrogen 15 mg/dL (9-23); Calcium 8.8 mg/dL (8.7-10.4); Carbon Dioxide 26 mmol/L (20-30); Chloride 105 mmol/L (98-107); Glucose 133 mg/dL (74-106); Magnesium 1.8 mg/dL (1.6-2.6); Potassium 3.3 mmol/L (3.5-5.1); Sodium 138 mmol/L (136-145)
[2024-04-17 09:17] LABS: Bilirubin, Total 0.4 mg/dL (0.2-1.0); Phosphorus 1.6 mg/dL (2.4-5.1); Total Protein 6.3 g/dL (5.7-8.2)
[2024-04-17 09:26] LABS: Alanine Aminotransferase < 9 U/L (7-40)
[2024-04-17] MEDS: MAGNESIUM SULFATE 1GM/100ML 100 ML IV ONE (10:54)
[2024-04-17 14:15] LABS: Base Excess 1.8 mmol/L (-2.0-3.0)
[2024-04-17] MEDS ORDERED: POTASSIUM PHOSPHATE 22 MEQ in SODIUM CHL 0.9% 100 ML IV ONE (17:30)
[2024-04-17] MEDS: POTASSIUM CHL 20MEQ/100ML 100 ML IV SCH (18:03)
[2024-04-18] VITALS (13 sets, daily range): BP systolic 122–145; BP diastolic 47–77; PULSE 79–109; RESP 16–20; TEMP 97.8–98.6; O2SAT 94–99
[2024-04-18] MEDS ORDERED: IPRATROPIUM BROM 0.5 MG/2.5ML INH SOL NEB PRN
[2024-04-18] MEDS ORDERED: LEVALBUTEROL HCL 1.25 MG/3 ML NEB NEB PRN
[2024-04-18 06:59] LABS: Basophils # (auto) 0 10 ^3/uL (0-0.2); Basophils % (auto) 0.1 % (0.0-2.0); Eosinophils # (auto) 0.1 10 ^3/uL (0-0.8); Hematocrit 26.2 % (36.0-46.0); Mean Corpuscular Hgb Conc. 30.5 g/dL (32.0-36.0); Monocytes # (auto) 0.5 10 ^3/uL (0-1.3)
[2024-04-18 07:01] LABS: Lymphocytes % (auto) 9.8 % (10.0-50.0); Mean Corpuscular Volume 85.3 fL (80.0-100.0); Monocytes % (auto) 5.1 % (0.0-12.0); Neutrophils # (auto) 8.7 10 ^3/uL (1.6-8.6); Platelet Count (auto) 358 10^3/uL (140-450); Red Blood Cells 3.07 10^6/uL (4.0-5.20); Red Cell Distribution Width 19.3 % (11.8-14.3); White Blood Cell 10.3 10^3/uL (4.4-10.8)
[2024-04-18 07:19] LABS: Albumin 2.7 g/dL (3.2-4.8); Alkaline Phosphatase 145 U/L (46-116); Anion Gap 5 (5-15); Aspartate Aminotransferase 31 U/L (13-40); Bilirubin, Total 0.3 mg/dL (0.2-1.0); Blood Urea Nitrogen 14 mg/dL (9-23); Calcium 8.5 mg/dL (8.7-10.4); Carbon Dioxide 27 mmol/L (20-30); Chloride 106 mmol/L (98-107); Glucose 136 mg/dL (74-106); Sodium 138 mmol/L (136-145); Total Protein 6.2 g/dL (5.7-8.2)
[2024-04-18 07:26] LABS: Alanine Aminotransferase < 9 U/L (7-40)
[2024-04-18 08:21] LABS: Base Excess 4.6 mmol/L (-2.0-3.0)
[2024-04-19] VITALS (10 sets, daily range): BP systolic 121–145; BP diastolic 52–72; PULSE 72–103; RESP 18–20; TEMP 36.7; O2SAT 93–98
[2024-04-19 07:16] LABS: Basophils # (auto) 0 10 ^3/uL (0-0.2); Basophils % (auto) 0.2 % (0.0-2.0); Eosinophils # (auto) 0.1 10 ^3/uL (0-0.8); Monocytes # (auto) 0.6 10 ^3/uL (0-1.3); Neutrophils # (auto) 9.2 10 ^3/uL (1.6-8.6)
[2024-04-19 07:18] LABS: Hematocrit 27.1 % (36.0-46.0); Lymphocytes # (auto) 1.4 10 ^3/uL (0.4-5.4); Lymphocytes % (auto) 12.7 % (10.0-50.0); Mean Corpuscular Hemoglobin 25.6 pg (28.0-32.0); Mean Corpuscular Hgb Conc. 29.5 g/dL (32.0-36.0); Mean Corpuscular Volume 86.9 fL (80.0-100.0); Monocytes % (auto) 5.4 % (0.0-12.0); Neutrophils % (auto) 80.7 % (37.0-80.0); Platelet Count (auto) 363 10^3/uL (140-450); Red Blood Cells 3.12 10^6/uL (4.0-5.20); White Blood Cell 11.4 10^3/uL (4.4-10.8)
[2024-04-19 07:26] LABS: Albumin 2.8 g/dL (3.2-4.8); Alkaline Phosphatase 141 U/L (46-116); Anion Gap 4 (5-15); Aspartate Aminotransferase 21 U/L (13-40); Bilirubin, Total 0.3 mg/dL (0.2-1.0); Blood Urea Nitrogen 14 mg/dL (9-23); Calcium 8.8 mg/dL (8.7-10.4); Carbon Dioxide 28 mmol/L (20-30); Chloride 106 mmol/L (98-107); Glucose 144 mg/dL (74-106); Potassium 3.7 mmol/L (3.5-5.1); Sodium 138 mmol/L (136-145); Total Protein 6.4 g/dL (5.7-8.2)
[2024-04-19 07:29] LABS: Alanine Aminotransferase < 9 U/L (7-40)
[2024-04-19 10:16] LABS: Ovalocytes FEW; Platelet Estimate Adequate; Tear Drop Cells FEW
[2024-04-19] MEDS: LACTULOSE 20Gm/30ML SOLN PO SCH (21:38)
[2024-04-20] VITALS (10 sets, daily range): BP systolic 113–148; BP diastolic 48–63; PULSE 96–101; RESP 16–20; TEMP 98–98.7; O2SAT 92–97
[2024-04-20 07:01] LABS: Basophils # (auto) 0 10 ^3/uL (0-0.2); Eosinophils # (auto) 0.1 10 ^3/uL (0-0.8); Lymphocytes # (auto) 1.4 10 ^3/uL (0.4-5.4); Mean Corpuscular Hgb Conc. 31.3 g/dL (32.0-36.0); White Blood Cell 10.9 10^3/uL (4.4-10.8)
[2024-04-20 07:03] LABS: Basophils % (auto) 0.2 % (0.0-2.0); Eosinophils % (auto) 1.1 % (0.0-7.0); Hematocrit 22.9 % (36.0-46.0); Hemoglobin 7.2 g/dL (12.2-16.2); Lymphocytes % (auto) 13.1 % (10.0-50.0); Mean Corpuscular Hemoglobin 26.4 pg (28.0-32.0); Mean Corpuscular Volume 84.4 fL (80.0-100.0); Monocytes # (auto) 0.8 10 ^3/uL (0-1.3); Neutrophils # (auto) 8.5 10 ^3/uL (1.6-8.6); Neutrophils % (auto) 78.6 % (37.0-80.0); Platelet Count (auto) 356 10^3/uL (140-450); Red Blood Cells 2.71 10^6/uL (4.0-5.20); Red Cell Distribution Width 19.4 % (11.8-14.3)
[2024-04-20 07:23] LABS: Albumin 2.6 g/dL (3.2-4.8); Alkaline Phosphatase 144 U/L (46-116); Anion Gap 5 (5-15); Aspartate Aminotransferase 37 U/L (13-40); BUN/Creatinine Ratio 22.4 (10.0-20.0); Bilirubin, Total 0.3 mg/dL (0.2-1.0); Blood Urea Nitrogen 15 mg/dL (9-23); Calcium 8.7 mg/dL (8.7-10.4); Carbon Dioxide 28 mmol/L (20-30); Chloride 105 mmol/L (98-107); Glucose 120 mg/dL (74-106); Potassium 3.3 mmol/L (3.5-5.1); Sodium 138 mmol/L (136-145); Total Protein 6.1 g/dL (5.7-8.2)
[2024-04-20 07:26] LABS: Alanine Aminotransferase < 9 U/L (7-40)
[2024-04-20] MEDS: POTASSIUM CHL 20 Meq TABLET PO ONE (11:30)
[2024-04-20] MEDS ORDERED: PANT40T PO (15:17)
[2024-04-20 18:32] LABS: Body Fluid Red Blood Cells 93 CUMM (0-2000); Body Fluid White Blood Cells 123 CUMM (0-200)
[2024-04-20 18:33] LABS: Body Fluid Polymorphonuclear 34 % (0-25)
[2024-04-21] VITALS (10 sets, daily range): BP systolic 120–175; BP diastolic 34–70; PULSE 74–109; RESP 16–22; TEMP 97.4–98.5; O2SAT 95–100
[2024-04-21 08:36] LABS: Basophils # (auto) 0 10 ^3/uL (0-0.2); Basophils % (auto) 0.3 % (0.0-2.0); Eosinophils # (auto) 0.2 10 ^3/uL (0-0.8); Eosinophils % (auto) 1.7 % (0.0-7.0); Hematocrit 26.3 % (36.0-46.0); Hemoglobin 7.5 g/dL (12.2-16.2); Lymphocytes # (auto) 1.1 10 ^3/uL (0.4-5.4); Lymphocytes % (auto) 11.7 % (10.0-50.0); Mean Corpuscular Hemoglobin 26.4 pg (28.0-32.0); Mean Corpuscular Hgb Conc. 28.5 g/dL (32.0-36.0); Mean Corpuscular Volume 92.8 fL (80.0-100.0); Monocytes # (auto) 0.6 10 ^3/uL (0-1.3); Monocytes % (auto) 6.3 % (0.0-12.0); Neutrophils # (auto) 7.5 10 ^3/uL (1.6-8.6); Nucleated Red Blood Cells % 0.2 %; Platelet Count (auto) 312 10^3/uL (140-450); Red Blood Cells 2.84 10^6/uL (4.0-5.20); White Blood Cell 9.4 10^3/uL (4.4-10.8)
[2024-04-21 08:42] LABS: Alanine Aminotransferase 11 U/L (7-40); Albumin 2.3 g/dL (3.2-4.8); Alkaline Phosphatase 146 U/L (46-116); Anion Gap 5 (5-15); Aspartate Aminotransferase 29 U/L (13-40); BUN/Creatinine Ratio 26.2 (10.0-20.0); Bilirubin, Total 0.3 mg/dL (0.2-1.0); Blood Urea Nitrogen 16 mg/dL (9-23); Calcium 8.2 mg/dL (8.7-10.4); Carbon Dioxide 27 mmol/L (20-30); Chloride 106 mmol/L (98-107); Glucose 117 mg/dL (74-106); Potassium 4.4 mmol/L (3.5-5.1); Sodium 138 mmol/L (136-145); Total Protein 5.4 g/dL (5.7-8.2)
[2024-04-21 08:43] LABS: Red Cell Distribution Width 20.6 % (11.8-14.3)
[2024-04-21 13:07] LABS: Protein, Body Fluid 2.3 g/dL (.)
== END 2024-04-21 21:30 | disposition home health service (06) | DRG 177 ==
LOC: ER 13:58 → EDBD 13:58 → TELE 18:24 → TELE-EAST 23:44 → TELE-CENTR 04-13 18:07
PROVIDERS: ADMIT Internal Medicine Pulmonary Disease; ATTEND Internal Medicine Pulmonary Disease
PROC: 0W993ZZ Drainage of Right Pleural Cavity, Percutaneous Approach (ICD-10-PCS; 2024-04-12)
PROC: 30233N1 Transfusion of Nonautologous Red Blood Cells into Peripheral Vein, Percutaneous Approach (ICD-10-PCS; 2024-04-12)
PROC: 05HD33Z Insertion of Infusion Device into Right Cephalic Vein, Percutaneous Approach (ICD-10-PCS; 2024-04-13)
PROC: B54MZZA Ultrasonography of Right Upper Extremity Veins, Guidance (ICD-10-PCS; 2024-04-13)
PROC: 0W993ZZ Drainage of Right Pleural Cavity, Percutaneous Approach (ICD-10-PCS; principal; 2024-04-20)
DX: J15.69 Pneumonia due to other Gram-negative bacteria (principal); G93.41 Metabolic encephalopathy; J96.00 Acute respiratory failure, unspecified whether with hypoxia or hypercapnia; J90 Pleural effusion, not elsewhere classified; K92.2 Gastrointestinal hemorrhage, unspecified; K46.0 Unspecified abdominal hernia with obstruction, without gangrene; K43.6 Other and unspecified ventral hernia with obstruction, without gangrene; J44.0 Chronic obstructive pulmonary disease with (acute) lower respiratory infection; J15.9 Unspecified bacterial pneumonia; I10 Essential (primary) hypertension; Z20.822 Contact with and (suspected) exposure to COVID-19; S30.1XXA Contusion of abdominal wall, initial encounter; E66.01 Morbid (severe) obesity due to excess calories; K43.9 Ventral hernia without obstruction or gangrene; R29.6 Repeated falls; F41.9 Anxiety disorder, unspecified; G89.4 Chronic pain syndrome; E78.5 Hyperlipidemia, unspecified; M10.9 Gout, unspecified; E83.42 Hypomagnesemia; M47.892 Other spondylosis, cervical region; E87.6 Hypokalemia; E83.39 Other disorders of phosphorus metabolism; D63.8 Anemia in other chronic diseases classified elsewhere; I25.2 Old myocardial infarction; Z68.29 Body mass index [BMI] 29.0-29.9, adult; Z90.5 Acquired absence of kidney; Z83.3 Family history of diabetes mellitus; W18.39XA Other fall on same level, initial encounter; Y93.89 Activity, other specified; Y92.89 Other specified places as the place of occurrence of the external cause; Y99.8 Other external cause status
CPT/HCPCS: 32555; 36415; 36600; 70450; 70551; 71045; 71250; 72125; 73502; 74018; 74176; 74250; 76604; 76700; 76942; 80053; 80202; 81001; 82270; 82378; 82550; 82607; 82728; 82746; 82805; 82962; 83010; 83036; 83540; 83550; 83605; 83615; 83735; 83986; 84100; 84484; 85007; 85014; 85018; 85025; 85027; 85610; 85730; 86300; 86301; 86304; 86850; 86900; 86901; 86920; 87040; 87070; 87081; 87205; 87426; 87804; 89051; 93005; 93970; 94640; 96374; 97110; 97116; 97163; 97530; G0378; J0692; J1815; J2470; J2543; J3480; J7060